=== PATIENT | male | born 1980 | race Caucasian/White ===

== ENCOUNTER 2023-10-04 19:14 | Emergency (ER) | payer OTHER, SELFPAY ==
[2023-10-04 19:37] VITALS: BP 150/89; PULSE 60; RESP 16; TEMP 36.6; O2SAT 98; BMI 28.2
--- NOTE | 2023-10-04 19:39 | ED.GENADULT ---
HPI - General Adult General Stated complaint: High blood pressure/Blurry vision Related Data Allergies Allergy/AdvReac Type Severity Reaction Status Date / Time No Known Allergies Allergy Verified 10/04/23 19:36 [No Known Allergies*] Course Course Course Narrative: Patient complains of an episode of blurry vision, dizziness and palpitations which resolved after about half an hour He did not feel faint, he did not faint he remembers everything he has no headache no loss of consciousness, he had no confusion, he never lost muscle strength in arms or legs EKG and labs are ordered This is rapid medical exam in triage pending full evaluation by ER provider
--- NOTE | 2023-10-04 19:42 | ECG_ITS ---
Test Reason : HIGH BLOOD PRESSURE Blood Pressure : / mmHG Vent. Rate : 062 BPM Atrial Rate : 062 BPM P-R Int : 114 ms QRS Dur : 090 ms QT Int : 380 ms P-R-T Axes : 003 026 023 degrees QTc Int : 385 ms Normal sinus rhythm with sinus arrhythmia Normal ECG No previous ECGs available Referred By: Manpreet Castro Electronically Signed By:Prashanth Strauss
[2023-10-04 20:11] LABS: MANUAL DIFF FLAG NO
[2023-10-04 20:12] LABS: Basophils Percent Auto 0.2 % (0-2); Eosinophils Absolute Auto 0.1 X10*3/uL (0.0-0.4); Eosinophils Percent Auto 1.3 % (0-4); Hematocrit 43.9 % (42.0-52.0); Imm Gran Abs Auto 0.03 X10*3/uL (0.00-0.03); Imm Gran Pct Auto 0.3 % (0.0-0.4); Lymphocytes Absolute Auto 3.1 X10*3/uL (1.2-4.9); Lymphocytes Percent Auto 34.7 % (20-40); Mean Corpuscular HGB Conc 34.2 g/dl (31.0-36.0); Mean Corpuscular Hemoglobin 30.3 pg (27.0-33.0); Mean Corpuscular Volume 88.7 fL (80.0-98.0); Mean Platelet Volume 10.3 fL (9.4-12.4); Monocytes Absolute Auto 0.7 X10*3/uL (0.1-1.2); Monocytes Percent Auto 7.7 % (2-11); Neutrophils Percent Auto 55.8 % (45-73); Platelet Count 234 X10*3/uL (160-400); Red Blood Count 4.95 X10*6/uL (4.60-5.80); Red Cell Distribution Width 13.2 % (11.0-16.0); White Blood Count 8.9 X10*3/uL (4.8-10.8)
--- NOTE | 2023-10-04 20:12 | MHC.EDTECH ---
EKG taken per order and labs were obtained and sent to lab,patient brought back to waiting area.
[2023-10-04 20:25] LABS: Anion Gap 18 (12-20); Blood Urea Nitrogen 10 mg/dL (9-16); Calcium 9.6 mg/dL (8.4-10.2); Carbon Dioxide 19 mmol/L (22-29); Chloride 107 mmol/L (96-108); Creatinine Clr Calc Pharmacy 102.5; Estimated Glomerular Filt Rate > 60; Glucose Random 86 mg/dL (60-115); Potassium 4.1 mmol/L (3.3-5.1); Sodium 140 mmol/L (135-145)
[2023-10-04 20:33] LABS: Troponin-I High Sensitivity < 2.7 ng/L (<3.5-35.0)
== END 2023-10-04 22:11 | disposition left against medical advice (07) ==
PROVIDERS: Physician Assistant Medical; Emergency Provider Emergency Medicine
DX: R42 Dizziness and giddiness (principal); H53.8 Other visual disturbances; I10 Essential (primary) hypertension
CPT/HCPCS: 36415; 80048; 84484; 85025; 93005; 99283

== ENCOUNTER → 2023-10-04 19:42 | Outpatient (BNV) | payer OTHER, SELFPAY | PROVIDERS: Emergency Provider Emergency Medicine; Visit Provider Internal Medicine Cardiovascular Disease | DX: R00.2 Palpitations (principal) | CPT/HCPCS: 93010 ==